=== PATIENT | female | born 1965 ===

== ENCOUNTER 2021-05-29 20:12 | Emergency (ER) | payer BC, SELFPAY ==
[2021-05-29] VITALS (7 sets, daily range): BP systolic 130–146; BP diastolic 58–95; PULSE 59–70; RESP 18; TEMP 36.6; O2SAT 95–100; BMI 23.2
--- NOTE | 2021-05-29 20:17 | DI.RAD.S_ITS ---
PROCEDURE: XR CHEST 1V INDICATIONS: chest pain TECHNIQUE: One view of the chest was acquired. COMPARISON: None. FINDINGS: Surgical changes and devices: None. Lungs and pleura: Lungs are clear. No pleural effusions or pneumothorax. Mediastinum: Mediastinal contours appear normal. Heart size is normal. Bones and chest wall: No suspicious bony lesions. Overlying soft tissues appear unremarkable. IMPRESSION: No evidence acute pulmonary process. Dictated by: Kai Greer M.D. on 05/29/2021 at 20:50 Approved by: Kai Greer M.D. on 05/29/2021 at 20:50
[2021-05-29 20:42] LABS: COVID19 -Nasal RAPID POSITIVE (Negative)
[2021-05-29 20:54] LABS: Add Manual Diff / Slide Review NO; Basophils Absolute Auto 200 /uL (0-100); Basophils Percent Auto 2.5 % (0-2); Eosinophils Absolute Auto 100 /uL (0-450); Hematocrit 41.6 % (36-46); Lymphocytes Absolute Auto 2600 /uL (1100-4500); Lymphocytes Percent Auto 43.9 % (25-40); Mean Corpuscular HGB Conc 33.8 % (30-36); Mean Corpuscular Hemoglobin 31.3 PG (26-34); Mean Corpuscular Volume 92.7 fL (80-100); Monocytes Absolute Auto 600 /uL (0-900); Monocytes Percent Auto 10.9 % (3-14); Neutrophils Absolute Auto 2500 /uL (1500-7000); Neutrophils Percent Auto 41.7 % (50-75); Platelet Count 302 X10^3/uL (150-400); Red Blood Cell Count 4.48 X10^6/uL (4.0-5.2); Red Cell Distribution Width 13.1 % (11.6-14.8)
[2021-05-29 21:02] LABS: Alanine Aminotransferase 171 IU/L (<35); Albumin 4.4 g/dL (3.5-5.0); Albumin Globulin Ratio 1.4 (1.0-2.8); Alkaline Phosphatase 128 U/L (38-126); Aspartate Aminotransferase 108 IU/L (14-36); Bilirubin Total 0.5 mg/dL (0.2-1.3); Blood Urea Nitrogen 11 mg/dL (7-17); Calcium 9.4 mg/dL (8.4-10.2); Carbon Dioxide 29 mmol/L (22-32); Chloride 105 mmol/L (98-107); Creatine Kinase 29 U/L (30-135); Estimated Glomerular Filt Rate > 60.0 mL/min (>60); Globulin 3.1 g/dL (1.7-4.1); Glucose 94 mg/dL (70-100); HEMOLYSIS < 15 (0-50); Lipase 48 U/L (23-300); Potassium 3.6 mmol/L (3.4-5.1); Sodium 141 mmol/L (137-145); Total Protein 7.5 g/dL (6.3-8.2)
--- NOTE | 2021-05-29 21:11 | PC.NURSE ---
Visiting from [place] w/ daughter and daughter's children. Daughter is not vaccinated. Pt gave permission for me to inform her daughter as she is not allowed to return to room. Daughter verbalized understanding of visiting policy. Reviewed s/s of covarcadio as well as to consider herself and her children positive and to quarantine for 10 days. Daughter verbalized understanding.
[2021-05-29 21:13] LABS: Troponin I < 0.012 ng/mL (0.01-0.034)
[2021-05-29 21:27] LABS: D Dimer < 200 ng/mL (<230)
[2021-05-30] VITALS (8 sets, daily range): BP systolic 117–130; BP diastolic 60–67; PULSE 62–73; RESP 18; TEMP 36.3; O2SAT 97–100
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
[2021-05-30] MEDS: ONDANSETRON 4 MG ODT PREPACK 1 BOTTLE MISC (01:37)
== END 2021-05-30 01:40 | disposition home or self-care (01) ==
PROVIDERS: Emergency Provider Emergency Medicine
DX: U07.1 COVID-19 (principal); R50.9 Fever, unspecified; R51.9 Headache, unspecified; R07.9 Chest pain, unspecified
CPT/HCPCS: 36415; 71045; 80053; 82550; 83690; 84484; 85025; 85379; 87635; 93005; 99284; C9803